=== PATIENT | female | born 1950 | race Caucasian/White ===

== ENCOUNTER → 2017-06-18 | Outpatient (CLI) | payer BC | END | disposition home or self-care (01) | LOC: RAD 15:04 | DX: M47.896 Other spondylosis, lumbar region (principal); M48.061 Spinal stenosis, lumbar region without neurogenic claudication; M54.32 Sciatica, left side | CPT/HCPCS: 72100 ==

== ENCOUNTER → 2017-07-08 | Outpatient (CLI) | payer BC | END | disposition home or self-care (01) | LOC: US 15:02 | DX: I73.9 Peripheral vascular disease, unspecified (principal); I70.0 Atherosclerosis of aorta | CPT/HCPCS: 93926 ==

== ENCOUNTER 2017-08-25 07:31 | Outpatient (CLI) | payer BC ==
[2017-08-25 08:25] LABS: HEMATOCRIT 39.7 % (36.0-47.0); HEMOGLOBIN 13.8 g/dL (12.0-15.5); MEAN CORPUSCULAR HEMOGLOBIN 33 pg (25-35); MEAN CORPUSCULAR HGB CONC 35 g/dL (31-37); MEAN CORPUSCULAR VOLUME 95 fL (79-100); PLATELET COUNT 244 x10^3/uL (140-400); RED BLOOD COUNT 4.18 x10^6/uL (3.50-5.40); RED CELL DISTRIBUTION WIDTH 13.2 % (11.5-14.5); WHITE BLOOD COUNT 8.9 x10^3/uL (4.0-11.0)
[2017-08-25 08:39] LABS: ANION GAP 3 (6-14); BLOOD UREA NITROGEN 23 mg/dL (7-20); CALCIUM 9.2 mg/dL (8.5-10.1); CARBON DIOXIDE 35 mmol/L (21-32); CHLORIDE 99 mmol/L (98-107); CREATININE 0.9 mg/dL (0.6-1.0); GFR 62.8; GLUCOSE 191 mg/dL (70-99); SODIUM 137 mmol/L (136-145)
[2017-08-25] MEDS ORDERED: CONTRAST GIVEN MC (11:15)
[2017-08-25] MEDS: MIDAZOLAM HCL/PF 2 MG/2 ML VIAL. IV (11:16)
[2017-08-25] MEDS: IODIXANOL 320 MG/ML 100 ML VIAL. IART (11:16)
[2017-08-25] MEDS: LIDOCAINE 2% 20 ML VIAL. IJ (11:16)
[2017-08-25] MEDS: fentaNYL PF VIAL 100 MCG/2 ML VIAL IV (11:17)
[2017-08-25] MEDS ORDERED: IV 1/2 NORMAL SALINE 1,000 ML IV (11:32)
[2017-08-25] MEDS ORDERED: NITROGLYCERIN SUBLINGUAL 0.4 MG BOTTLE OF 25. SL (11:45)
[2017-08-25] MEDS ORDERED: ACETAMINOPHEN 325 MG TABLET. PO (11:45)
[2017-08-25] MEDS ORDERED: MAGNESIUM HYDROXIDE 2,400 MG/30 ML ORAL.SUSP. PO (11:45)
== END 2017-08-25 14:17 | disposition home or self-care (01) ==
LOC: CARD 07:31
DX: I11.9 Hypertensive heart disease without heart failure (principal); I73.9 Peripheral vascular disease, unspecified; J44.9 Chronic obstructive pulmonary disease, unspecified; R68.89 Other general symptoms and signs
CPT/HCPCS: 36415; 75630; 80048; 85027; 85610; 93306; 99152; 99153; G0269; J1644; J2250; J3010

== ENCOUNTER → 2017-10-07 | Outpatient (CLI) | payer BC | END | disposition home or self-care (01) | LOC: MRI 10:37 | DX: M51.26 Other intervertebral disc displacement, lumbar region (principal); M48.061 Spinal stenosis, lumbar region without neurogenic claudication; M12.88 Other specific arthropathies, not elsewhere classified, other specified site | CPT/HCPCS: 72148 ==